=== PATIENT | male | born 1940 | race Caucasian/White ===

== ENCOUNTER 2019-06-15 09:35 | Inpatient (IN) | payer OTHER ==
[~2019-06-15] VITALS: Ht 167.6 cm; Wt 117.9 kg
[~2019-06-15 09:35] MED LIST: ADVAIR 100-501 EACH; ADVAIR HFA 230M12 GM INH; ALDACTONE25 MG; ASPIRIN81 M2; ATORVASTATIN CA80 MG PO; BRILINTA90 MG; CENTRUM SILVER1 EAC4 PO; DIOVAN 80 MG TA80 M1 PO; DYAZIDE 37.5-21 EACH PO; EFFEXOR XR75 MG PO; LEVOTHYROXINE0.05 MG; LISINOPRIL5 MG; PROTONIX40 M2 PO; TAPAZOLE10 MG PO; TOPROL XL50 MG; VENTOLIN HFA INH8 GM
[2019-06-15] MEDS ORDERED: ELIQUIS5 MG PO (10:23)
[2019-06-15] MEDS ORDERED: COZAAR 25 MG TA25 M1 PO (10:24)
[2019-06-15] MEDS ORDERED: TAPAZOLE10 MG PO (10:27)
[2019-06-15] MEDS ORDERED: PROSCAR 5MG TABL5 M1 PO (10:31)
[2019-06-15 11:00] VITALS: BP 154/93
[2019-06-15 11:04] LABS: HEMATOCRIT 44.6 % (42.0-52.0); HEMOGLOBIN 15.7 gm/dL (14.0-18.0); MCH 33.6 pg (26.0-34.0); MCHC 35.2 g/dL (28.0-37.0); MCV 95.6 fL (80.0-100.0); MPV 8.8 fl. (7.2-11.1); RBC 4.67 mil/uL (4.50-6.00); RDW-CV 14.4 % (10.5-14.5); WBC 7.8 thou/uL (4.0-11.0)
[2019-06-15 11:18] LABS: ALBUMIN 3.4 g/dL (3.4-5.0); ALKALINE PHOSPHATASE 103 U/L (46-116); ANION GAP 6 mmol/L (7-16); BUN 24 mg/dL (7-18); CALCIUM 8.9 mg/dL (8.5-10.1); CHLORIDE 104 mmol/L (98-107); CHOLESTEROL 142 mg/dL (<200); CO2 31 mmol/L (21-32); GLUCOSE 106 mg/dL (70-99); HDL CHOLESTEROL 72 mg/dL (>40); LDL CHOLESTEROL 53 mg/dL (<100); POTASSIUM 4.3 mmol/L (3.5-5.1); SERUM ASSESSMENT Clear; SGOT 27 U/L (15-37); SGPT 28 U/L (30-65); SODIUM 141 mmol/L (136-145); TOTAL BILIRUBIN 1.9 mg/dL (<0.1-1.0); TOTAL PROTEIN 6.8 g/dL (6.4-8.2); TRIGLYCERIDE 86 mg/dL (<150); VLDL 17 mg/dL (<40)
[2019-06-15] MEDS ORDERED: CARVEDILOL25 MG PO (12:21)
--- NOTE | 2019-06-15 12:38 | EKG ---
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: : 1940 Requested By: Mayito Betancourt Order Number: [id number] Reading MD: Mayito Betancourt Measurements Intervals [place] Rate: 78 P: [place]: QRS: -62 QRSD: 98 T: 78 QT: 362 QTc: 413 Interpretive Statements Atrial fibrillation Ventricular premature complex Left anterior fascicular block Compared to ECG 09/26/2014 11:02:54 Sinus rhythm no longer present Electronically Signed On 06-15-2019 12:37:03 CDT by Mayito Betancourt [email or web address] <ELECTRONICALLY SIGNED> By: Mayito Betancourt MD, FAC 06/15/19 1237 1137 1137 Mayito Betancourt MD, [facility] /EPI
[2019-06-15 16:14] VITALS: BP 142/96
[2019-06-15 20:31] VITALS: BP 165/105
[2019-06-16] VITALS (7 sets, daily range): BP systolic 103–168; BP diastolic 59–97
--- NOTE | 2019-06-16 11:09 | EKG ---
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: : 1940 Requested By: Mayito Betancourt Order Number: [id number] Reading MD: Mayito Betancourt Measurements Intervals [place] Rate: 85 P: [place]: QRS: -58 QRSD: 97 T: 78 QT: 391 QTc: 465 Interpretive Statements Atrial fibrillation Left anterior fascicular block septal infarct, old Compared to ECG 06/15/2019 11:37:43 Ventricular premature complex(es) no longer present Electronically Signed On 06-16-2019 11:08:03 CDT by Mayito Betancourt [email or web address] <ELECTRONICALLY SIGNED> By: Mayito Betancourt MD, [facility] 06/16/19 1108 0952 0952 Mayito Betancourt MD, [facility] /EPI
[2019-06-17 04:00] VITALS: BP 132/83
[2019-06-17 07:51] VITALS: BP 160/96
--- NOTE | 2019-06-17 10:03 | EKG ---
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1940 Requested By: Mayito Betancourt Order Number: [id number] Reading MD: Mayito Betancourt Measurements Intervals [place] Rate: 75 P: 208 CO: 197 QRS: -61 QRSD: 108 T: 79 QT: 395 QTc: 442 Interpretive Statements Sinus or ectopic atrial rhythm Atrial premature complexes Left anterior fascicular block septal infarct, old Compared to ECG 06/16/2019 09:52:51 Ectopic atrial rhythm now present Atrial fibrillation no longer present Myocardial infarct finding still present Electronically Signed On 06-17-2019 10:01:51 CDT by Mayito Betancourt [email or web address] <ELECTRONICALLY SIGNED> By: Mayito Betancourt MD, FACC 06/17/19 1001 4 4 Mayito Betancourt MD, [facility] /EPI
[2019-06-17 10:55] VITALS: BP 160/96
[2019-06-17] MEDS ORDERED: SOTALOL80 MG PO (11:03)
--- NOTE | 2019-06-17 14:14 | D ---
[address] [address] DISCHARGE SUMMARY Name: IESHA LUNA Room: [address] IN .[place].#: [id number] Admission: 06/15/19 Attend Phys: Mayito Betancourt MD, F Discharge: 06/17/19 Date of : 42 Report #: [id number] THIS REPORT FOR: //name// cc: Paula Gonzalez MD, Rebecca MD ~ THIS REPORT FOR: //name// CC: Mayito Gonzalez MD DATE OF SERVICE: 06/17/2019 DISCHARGE DIAGNOSES: 1. Ventricular tachycardia. 2. Atrial fibrillation. 3. Coronary artery disease. 4. Hyperthyroidism. 5. Hypertension. 6. Hyperlipidemia. CONSULTANTS: None. PROCEDURES: None. HISTORY OF PRESENT ILLNESS: The patient is a 79-year-old white male, who was discharged from [facility] today after he was admitted for monitoring while starting sotalol. The patient has an extensive past medical history. He apparently presented back in 1997 and had stents placed at [facility]. He has been followed by my partner, Dr. Harvey Johnson, since that time. In 2011, he apparently had a cardiac arrest and was admitted to [facility]. He had brief CPR at that time. He apparently required cardioversion. He had additional stents placed at [facility] at that time. Because of cardiac arrest, he underwent implantation of defibrillator. The patient was doing well until last December, he had a syncopal spell. He was admitted to [place] [facility]. He apparently had a heart catheterization at [place] last December after he was admitted there by Dr. Ram. This showed minimal disease of his LAD. The stent in the circumflex was widely patent, although there was a distal 80% narrowing. There were collaterals to the right coronary artery that was totally occluded. Echocardiogram at that time showed an ejection fraction of 50%. His ICD was noted to be at end of life and he underwent a generator change at [place] last December. He has actually been doing fairly well since that time. However, recent interrogation of his defibrillator noted frequent PVCs. Recently, he had an episode of shortness of breath and swelling and was given Lasix. The patient while at [place] [facility] in December was noted to be in atrial fibrillation and it [place] [address] DISCHARGE SUMMARY Name: IESHA LUNA Room: [address]#: [id number] Admission: 06/15/19 Attend Phys: Mayito Betancourt MD, F Discharge: 06/17/19 Date of : 42 Report #: [id number] rate control only. He was started on Eliquis. He has had no further bleeding. Recently, he was found to have evidence of hyperthyroidism and was started on methimazole by Dr. Cooper. On interrogation of his defibrillator, he was noted to have episodes of ventricular tachycardia, requiring overdrive pacing, although he had not received a shock. It was decided to start antiarrhythmic therapy, although the patient was not felt to be a candidate for amiodarone because of his hyperthyroidism state. He was suggested to be placed on sotalol. Recently, the patient denied any significant chest pain, increased shortness of breath and edema. He has had a brief loss of conscious recently, but no recent palpitations. PAST MEDICAL HISTORY: Otherwise, significant for finger amputation in the past, tonsillectomy, knee surgery, atrial fibrillation, hypertension, hyperlipidemia. CURRENT MEDICATIONS: Include Eliquis, losartan, methimazole, aspirin, Lipitor, carvedilol, Proscar, Effexor. ALLERGIES: HE HAD ALLERGY TO PENICILLIN. PHYSICAL EXAMINATION: VITAL SIGNS: His blood pressure was 130/80, pulse was 80, he was afebrile. HEENT: Mucous membranes were moist. CHEST: Clear to auscultation. CARDIAC: Irregular rhythm. ABDOMEN: Soft. EXTREMITIES: Had no edema. SKIN: Cool and dry. DIAGNOSTIC DATA: His ECG on admission showed an atrial fibrillation with occasional paced beat left axis deviation, septal Q-waves. His echocardiogram last December showed an ejection fraction of 50% with inferior hypokinesis. His chest x-ray on admission showed normal heart size, clear lung reynoso. LABORATORY WORK: Sodium 141, BUN 24, creatinine 1.0. Liver function studies were normal. His cholesterol was 142, triglyceride 86, HDL 72, LDL 53. TSH 3.7. His white blood cell count 7.8, hemoglobin 15.7. HOSPITAL COURSE: The patient was admitted to a monitored bed. He was noted to have PVCs. He was taken off carvedilol and started on sotalol 80 mg every 12 hours. He had no further arrhythmias or QT prolongation. He was able to ambulate, had no further complaints. After 5 doses, the patient was felt to be stable for discharge. At the time of discharge, he had a blood pressure of 140/80, pulse of 60, he was afebrile. His followup ECG showed atrial fibrillation with a left axis and septal Q-waves. He was discharged on his home medications that consisted of Eliquis 5 mg every 12 hours. He was taken off aspirin since he was on Eliquis. His last stent apparently was only 8 [place] [address] DISCHARGE SUMMARY Name: IESHA LUNA Room: [address] IN .R.#: [id number] Admission: 06/15/19 Attend Phys: Mayito Betancourt MD, F Discharge: 06/17/19 Date of : 42 Report #: [id number]. Cardiac catheterization last December showed no significant restenosis. He was to continue Lipitor 80 mg a day. He was taken off of carvedilol and switched to sotalol 80 mg every 12 hours. He was to continue Proscar 5 mg a day, Advair inhaler as needed, losartan 25 mg a day, methimazole for his hyperthyroidism, I recommend he follow up with Dr. Cooper. He was to continue Effexor 75 mg a day and albuterol as needed. He was discharged to return to the care of Dr. Paula Gonzalez for routine medical care. He is scheduled to see my nurse practitioner in 3 weeks. He will continue to have his defibrillator checked from home. He was to contact my office if he had recurrent chest pain, shortness of breath, syncope or discharges of the defibrillator. <ELECTRONICALLY SIGNED> By: Mayito Betancourt MD, [facility] 06/17/19 1414 1050 1239David Rubi Betancourt MD, FACC /nt
== END 2019-06-17 11:30 | disposition home or self-care (01) | DRG 309 ==
LOC: M.2W 09:35
PROVIDERS: ADMIT Internal Medicine Cardiovascular Disease
DX: I47.2 Ventricular tachycardia (principal); D68.69 Other thrombophilia; I48.91 Unspecified atrial fibrillation; I25.10 Atherosclerotic heart disease of native coronary artery without angina pectoris; E03.9 Hypothyroidism, unspecified; I10 Essential (primary) hypertension; E78.5 Hyperlipidemia, unspecified; I25.5 Ischemic cardiomyopathy; I34.0 Nonrheumatic mitral (valve) insufficiency; Z79.01 Long term (current) use of anticoagulants; Z95.810 Presence of automatic (implantable) cardiac defibrillator; Z95.5 Presence of coronary angioplasty implant and graft; Z79.82 Long term (current) use of aspirin; Z89.029 Acquired absence of unspecified finger(s); Z88.1 Allergy status to other antibiotic agents; Z88.0 Allergy status to penicillin

== ENCOUNTER → 2019-08-12 | Outpatient (CLI) | payer OTHER ==
[~2019-08-12] MED LIST changes: +CARVEDILOL25 MG PO; +COZAAR 25 MG TA25 M1 PO; +ELIQUIS5 MG PO; +PROSCAR 5MG TABL5 M1 PO; +SOTALOL80 MG PO
== END ==
LOC: M.LAB 10:59
DX: I48.19 Other persistent atrial fibrillation (principal)

== ENCOUNTER → 2019-10-27 | Outpatient (CLI) | payer OTHER ==
[~2019-10-27] MED LIST changes: +DIGOXIN250 MCG PO; +IMDUR 30 MG TAB30 M1 PO; +XANAX 0.5 MG0.5 MG PO
[2019-10-27 10:08] VITALS: BP 141/88
[2019-10-27 10:31] VITALS: BP 141/88
[2019-10-27 10:47] VITALS: BP 156/90
--- NOTE | 2019-10-27 14:20 | 2DMMODE ---
[place] [address] 2 D/M-MODE ECHOCARDIOGRAM Name: IESHA LUNA Room: [facility]#: [id number] Admission: 10/27/19 Attend Phys: Harvey Johnson, Discharge: Date of : 42 Date of Service: 10/27/19 1420 Report #: [id number] THIS REPORT FOR: cc: Paula Gonzalez MD, Rebecca MD Liston, Michael J. MD [facility] ~ APPROVED REPORT Study performed: 10/27/2019 09:11:50 EXAM: Comprehensive 2D, Doppler, and color-flow Echocardiogram Patient Location: Out-Patient Status: routine BSA: 2.16 HR: 74 bpm Other Information Study Quality: Good Indications Atrial Fibrillation Echo Enhancing Agent Indication: Endocardial border delineation Agent(s) / Amount(s) Used: Optison 3 cc 2D Dimensions IVSd: 12.82 (7-11mm) LVOT Diam: 22.42 (18-24mm) LVDd: 55.26 mm PWd: 10.98 (7-11mm) Ascending Ao: 40.95 (22-36mm) LVDs: 42.73 (25-40mm) Aortic Root: 37.10 mm Volumes Left Atrial Volume (Systole) LA ESV Index: 50.60 mL/m2 Aortic Valve AoV Peak Caleb.: 0.92 m/s AO Peak Gr.: 3.38 mmHg LVOT Max P.65 mmHg AO Mean Gr.: 2.11 mmHg LVOT Mean P.69 mmHg LVOT Max V: 0.64 m/[place] [address] 2 D/M-MODE ECHOCARDIOGRAM Name: IESHA LUNA Room: [facility]#: [id number] Admission: 10/27/19 Attend Phys: Harvey Johnson, Discharge: Date of : 42 Date of Service: 10/27/19 1420 Report #: [id number] AO V2 VTI: 18.56 cm LVOT Mean V: 0.37 m/s VIRGEN (VTI): 2.57 cm2 LVOT V1 VTI: 12.06 cm TDI Medial E' Caleb.: 0.14 m/s Lateral E' Caleb.: 0.13 m/s Pulmonary Valve PV Peak Caleb.: 0.75 m/s PV Peak Gr.: 2.22 mmHg Tricuspid Valve RAP Estimate: 5.00 mmHg TR Peak Gr.: 17.53 mmHg RVSP: 22.00 mmHg PA Pressure: 22.00 mmHg Left Ventricle The left ventricle is normal size. There is akinesis of the basal to mid inferior wall. There is normal left ventricular wall thickness. Left ventricular systolic function is mildly decreased. LVEF is 50%. This study is not technically sufficient to allow evaluation of the LV diastolic function due to atrial fibrillation. Right Ventricle The right ventricle is normal size. The right ventricular systolic function is normal. Pacemaker lead is present in the right ventricle. Atria Left atrium is mildly dilated. Right atrium is mildly dilated. Aortic Valve Mild aortic valve sclerosis. Trace aortic regurgitation. There is no aortic valvular stenosis. Mitral Valve The mitral valve is normal in structure. Mild mitral regurgitation. No evidence of mitral valve stenosis. Tricuspid Valve The tricuspid valve is normal in structure. Trace tricuspid regurgitation. No pulmonary hypertension. Pulmonic Valve The pulmonary valve is normal in structure. [place] [address] 2 D/M-MODE ECHOCARDIOGRAM Name: IESHA LUNA Room: [facility]#: [id number] Admission: 10/27/19 Attend Phys: Harvey Johnson, Discharge: Date of : 42 Date of Service: 10/27/19 1420 Report #: [id number] Great Vessels The aortic root is normal in size. The ascending aorta is mildly dilated. (4.1 cm) IVC is normal in size and collapses >50% with inspiration. Pericardium There is no pericardial effusion. <Conclusion> The left ventricle is normal size. There is normal left ventricular wall thickness. Left ventricular systolic function is mildly decreased. LVEF is 50%. This study is not technically sufficient to allow evaluation of the LV diastolic function due to atrial fibrillation. There is akinesis of the basal to mid inferior wall. Pacemaker lead is present in the right ventricle. Left atrium is mildly dilated. Right atrium is mildly dilated. Mild aortic valve sclerosis. Trace aortic regurgitation. There is no aortic valvular stenosis. Mild mitral regurgitation. Trace tricuspid regurgitation. No pulmonary hypertension. The ascending aorta is mildly dilated. (4.1 cm) <ELECTRONICALLY SIGNED> By: Harvey Johnson MD, FACC 10/27/19 142 142 142 Harvey Johnson MD, FACC /INF
--- NOTE | 2019-11-17 12:48 | CARD ---
[address] [address] CARDIAC CATH REPORT Name: IESHA LUNA Room: [facility]#: [id number] Admission: 10/27/19 Attend Phys: Harvey Johnson MD Discharge: Date of : 42 Report #: [id number] THIS REPORT FOR: //name// cc: Paula Gonzalez MD, Rebecca MD ~ CC: Harvey Gonzalez DATE OF SERVICE: 10/27/2019 PROCEDURE: DC cardioversion. INDICATION: Persistent atrial fibrillation. DESCRIPTION OF PROCEDURE: After informed consent was obtained, the patient was brought to the cardiac holding area. The patient was given intravenous Versed and fentanyl for conscious sedation. Once the patient was adequately sedated, he received a single biphasic shock of 300 joules converting to sinus rhythm. The patient tolerated the procedure well and without complication. IMPRESSION: 1. Persistent atrial fibrillation. 2. Successful direct current cardioversion to normal sinus rhythm. <ELECTRONICALLY SIGNED> By: Harvey Johnson MD, FACC 11/17/19 1248 0833 0841[facility] MD, FACC /nt
== END ==
LOC: M.CRD 08:45
PROVIDERS: ATTEND Internal Medicine Cardiovascular Disease
DX: I48.19 Other persistent atrial fibrillation (principal); I08.0 Rheumatic disorders of both mitral and aortic valves; I10 Essential (primary) hypertension; I25.10 Atherosclerotic heart disease of native coronary artery without angina pectoris; E78.2 Mixed hyperlipidemia; I25.5 Ischemic cardiomyopathy; I49.01 Ventricular fibrillation; Z98.890 Other specified postprocedural states; Z79.899 Other long term (current) drug therapy; Z88.0 Allergy status to penicillin; Z88.8 Allergy status to other drugs, medicaments and biological substances; Z95.810 Presence of automatic (implantable) cardiac defibrillator; Z88.1 Allergy status to other antibiotic agents

== ENCOUNTER 2020-02-17 17:30 | Inpatient (IN) | payer OTHER ==
[~2020-02-17] VITALS: Ht 167.6 cm; Wt 108.4 kg
[2020-02-17 17:35] VITALS: BP 186/121
[2020-02-17 18:45] LABS: ABSOLUTE EOSINOPHILS 0.1 thou/uL (0.0-0.7); ABSOLUTE LYMPHOCYTES 1.1 thou/uL (0.8-5.3); ABSOLUTE MONOCYTES 0.9 thou/uL (0.0-1.2); BASOPHILS 0.2 %; EOSINOPHILS 1.7 %; HEMATOCRIT 46.4 % (42.0-52.0); MCH 32.1 pg (26.0-34.0); MCHC 34.6 g/dL (28.0-37.0); MONOCYTES 14.3 %; MPV 8.4 fl. (7.2-11.1); NUCLEATED RBCS 0 /100WBC; PLATELET COUNT* 180 thou/uL (150-400); POLYS 65.8 %; RBC 4.99 mil/uL (4.50-6.00); RDW-CV 13.4 % (10.5-14.5); WBC 6.1 thou/uL (4.0-11.0)
[2020-02-17 18:56] LABS: CALCIUM 8.1 mg/dL (8.5-10.1); CREATININE 0.8 mg/dL (0.6-1.3); POTASSIUM 3.2 mmol/L (3.5-5.1)
[2020-02-17 19:01] LABS: ALBUMIN 2.9 g/dL (3.4-5.0); TOTAL BILIRUBIN 1.7 mg/dL (<0.1-1.0); TOTAL PROTEIN 7.1 g/dL (6.4-8.2)
[2020-02-17 20:39] VITALS: BP 190/90
[2020-02-17 22:00] VITALS: BP 106/68; BP 192/85
[2020-02-17 23:45] LABS: URINE BILIRUBIN NEGATIVE (Negative); URINE BLOOD NEGATIVE (Negative); URINE CLARITY CLEAR; URINE COLOR YELLOW; URINE GLUCOSE-RANDOM NEGATIVE (Negative); URINE KETONES 2+ (Negative); URINE LEUKOCYTES NEGATIVE (Negative); URINE NITRITE NEGATIVE (Negative); URINE PROTEIN 2+ (Negative); URINE UROBILINOGEN >= 8.0 E.U./dl (0.2-1.0)
[2020-02-17 23:46] VITALS: BP 194/89
[2020-02-18 01:13] LABS: CASTS None Seen /LPF (None Seen); SQUAMOUS 0-3 Few /LPF (0-3)
[2020-02-18 01:14] LABS: URINE RBC 0-2 Rare /HPF (0-2); URINE WBC 0-5 Rare /HPF (0-5)
[2020-02-18 01:15] LABS: BACTERIA 1-9 Few /HPF (None Seen); CRYSTALS None Seen /LPF (None Seen)
[2020-02-18 04:00] VITALS: BP 199/105
[2020-02-18 05:36] LABS: CALCIUM 8.4 mg/dL (8.5-10.1); CREATININE 0.6 mg/dL (0.6-1.3); POTASSIUM 3.9 mmol/L (3.5-5.1)
[2020-02-18 08:11] LABS: MAGNESIUM 1.7 mg/dL (1.8-2.4); PHOSPHORUS* 1.9 mg/dL (2.5-4.9)
[2020-02-18 11:18] VITALS: BP 151/77
--- NOTE | 2020-02-18 12:46 | EKG ---
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 : 1940 Requested By: Joo Willis Order Number: [id number] MD: Mayito Betancourt Measurements Intervals [place] Rate: 71 P: 14 [place]: 187 QRS: -59 QRSD: 109 T: 74 QT: 402 QTc: 437 Interpretive Statements Sinus rhythm Ventricular premature complex Left anterior fascicular block Abnormal R-wave progression, late transition Baseline wander in lead(s) I,III,aVL,aVF Compared to ECG 06/17/2019 08:05:36 Ventricular premature complex(es) now present Atrial premature complex(es) no longer present Electronically Signed On 02-18-2020 12:45:57 [employer] HEL[employer] by Mayito Betancourt [email or web address] <ELECTRONICALLY SIGNED> By: Mayito Betancourt MD, [facility] 02/18/20 1245 06 06 Mayito Betancourt MD, [facility] /EPI
[2020-02-18 17:15] VITALS: BP 172/85
[2020-02-18 20:00] VITALS: BP 182/87
[2020-02-18 20:30] VITALS: BP 176/92
[2020-02-18 22:35] VITALS: BP 138/85
[2020-02-19] VITALS: BP 153/78
[2020-02-19 04:00] VITALS: BP 145/87
[2020-02-19 06:10] LABS: HEMATOCRIT 42.8 % (42.0-52.0); HEMOGLOBIN 14.7 gm/dL (14.0-18.0); MCH 31.5 pg (26.0-34.0); MCHC 34.4 g/dL (28.0-37.0); MCV 91.8 fL (80.0-100.0); NUCLEATED RBCS 0 /100WBC; PLATELET COUNT* 232 thou/uL (150-400); RBC 4.67 mil/uL (4.50-6.00); RDW-CV 13.9 % (10.5-14.5); WBC 16.6 thou/uL (4.0-11.0)
[2020-02-19 06:37] LABS: ABSOLUTE LYMPHOCYTES 1.8 thou/uL (0.8-5.3); ABSOLUTE MONOCYTES 0.2 thou/uL (0.0-1.2); ABSOLUTE NEUTROPHILS 14.6 thou/uL (1.6-8.1); PLATELET ESTIMATE ADEQUATE
[2020-02-19 08:00] VITALS: BP 176/80
[2020-02-19 12:00] VITALS: BP 163/81
[2020-02-19 16:00] VITALS: BP 158/73
[2020-02-19 20:00] VITALS: BP 169/84
[2020-02-20] VITALS: BP 192/104
[2020-02-20 04:00] VITALS: BP 191/105
[2020-02-20 05:15] LABS: HEMATOCRIT 42.9 % (42.0-52.0); HEMOGLOBIN 14.6 gm/dL (14.0-18.0); MCH 31.5 pg (26.0-34.0); MCHC 34.1 g/dL (28.0-37.0); MCV 92.4 fL (80.0-100.0); RBC 4.65 mil/uL (4.50-6.00); RDW-CV 13.7 % (10.5-14.5); WBC 18.1 thou/uL (4.0-11.0)
[2020-02-20 05:30] LABS: BE 0 mmol/L (-2 to +3); PCO2 38.8 mmHg (35.0-45.0); PO2 71.2 mmHg (75.0-100.0); pH 7.416 (7.340-7.450)
[2020-02-20 06:01] LABS: ALBUMIN 2.8 g/dL (3.4-5.0); CALCIUM 8.4 mg/dL (8.5-10.1); CREATININE 0.9 mg/dL (0.6-1.3); MAGNESIUM 2.3 mg/dL (1.8-2.4); POTASSIUM 4.9 mmol/L (3.5-5.1); TOTAL BILIRUBIN 0.9 mg/dL (<0.1-1.0); TOTAL PROTEIN 5.7 g/dL (6.4-8.2)
[2020-02-20 08:19] VITALS: BP 173/91
[2020-02-20] MEDS ORDERED: DOXYCYCLINE 10100 MG PO (10:16)
[2020-02-20] MEDS ORDERED: PREDNISONE 10 M10 MG PO (10:16)
[2020-02-20] MEDS ORDERED: MUCINEX600 MG PO (10:16)
[2020-02-20] MEDS ORDERED: CEFDINIR300 MG PO (10:16)
[2020-02-20 12:48] VITALS: BP 173/91
[2020-02-20 13:21] VITALS: BP 162/88
== END 2020-02-20 14:00 | disposition home or self-care (01) | DRG 177 ==
LOC: M.ERS 17:30 → M.ORTHSURG 19:23 → M.TBA-ER 19:23 → M.ORTHSURG 21:04
PROVIDERS: Emergency Medicine; Internal Medicine; Physician Assistant; ADMIT Internal Medicine; ATTEND Internal Medicine
DX: U07.1 COVID-19 (principal); J12.89 Other viral pneumonia; J15.6 Pneumonia due to other Gram-negative bacteria; I48.20 Chronic atrial fibrillation, unspecified; J45.901 Unspecified asthma with (acute) exacerbation; I16.1 Hypertensive emergency; E44.0 Moderate protein-calorie malnutrition; E66.9 Obesity, unspecified; E80.6 Other disorders of bilirubin metabolism; I10 Essential (primary) hypertension; E05.90 Thyrotoxicosis, unspecified without thyrotoxic crisis or storm; I25.10 Atherosclerotic heart disease of native coronary artery without angina pectoris; Z68.38 Body mass index [BMI] 38.0-38.9, adult; Z95.5 Presence of coronary angioplasty implant and graft; Z95.810 Presence of automatic (implantable) cardiac defibrillator; Z79.899 Other long term (current) drug therapy; Z88.0 Allergy status to penicillin; Z88.1 Allergy status to other antibiotic agents; Z72.89 Other problems related to lifestyle